=== PATIENT | female | born 1980 | race American Indian/Alaskan Native ===

== ENCOUNTER 2016-08-03 21:03 | Emergency (ER) | payer OTHER, MEDICAID ==
[2016-08-03 21:15] VITALS: BP 127/64
--- NOTE | 2016-08-03 22:18 | EDM.PDOC ---
ED HPI GENERAL MEDICAL PROBLEM - General Chief Complaint: General Stated Complaint: CHEST PAIN,BODY ACHES,FEVER,BACK PAIN Time Seen by Provider: 08/03/16 22:12 Source of Information: Reports: Patient History Limitations: Reports: No limitations - History of Present Illness INITIAL COMMENTS - FREE TEXT/NARRATIVE: This 36 yo female patient reports to the ED with generalized body aches and a fever that started this morning. The patient also reports difficulties dealing with her sisters . 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) Middle Back Pain Score (Numeric/FACES): 5 - Related Data Allergies Allergy/AdvReac Type Severity Reaction Status Date / Time fluoxetine [From Prozac] Allergy Rash Verified 08/03/16 21:12 Home Meds: Home Meds buPROPion [Wellbutrin] 150 mg PO DAILY 03/24/16 [History] Past Medical History - Past Health History Medical/Surgical History: Denies Medical/Surgical History Other HEENT History: wears glasses Cardiovascular History: Reports: None Respiratory History: Reports: None Gastrointestinal History: Reports: None Genitourinary History: Reports: None 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 Musculoskeletal History: Reports: None Neurological History: Reports: None Psychiatric History: Reports: Addiction, Anxiety, Depression Other Psychiatric History: opiods Endocrine/Metabolic History: Reports: None Hematologic History: Reports: None Immunologic History: Reports: None Oncologic (Cancer) History: Reports: None Dermatologic History: Reports: None Social & Family History - Tobacco Use Smoking Status *Q: Current Every Day Smoker Years of Tobacco use: 26 Packs/Tins Daily: 0.2 Used Tobacco, but Quit: No Second Hand Smoke Exposure: Yes - Caffeine Use Caffeine Use: Reports: Coffee, Soda - Alcohol Use Days Per Week of Alcohol Use: 0 - Recreational Drug Use Recreational Drug Use: No Drug Use in Last 12 Months: Yes Recreational Drug Type: Reports: Marijuana/Hashish Recreational Drug Use Frequency: Daily ED ROS GENERAL - Review of Systems Review Of Systems: ROS reveals no pertinent complaints other than HPI. ED EXAM, GENERAL - Physical Exam Exam: See Below Exam Limited By: No limitations General Appearance: alert, WD/WN, mild distress Eye Exam: bilateral eye: EOMI, normal inspection, PERRL Ears: normal external exam, normal canal, hearing grossly normal, normal TMs Nose: normal inspection, normal mucosa, no blood Throat/Mouth: Normal inspection, Normal lips, Normal teeth, Normal gums, Normal oropharynx, Normal voice, No airway compromise Head: atraumatic, normocephalic Neck: normal inspection, supple, non-tender, full range of motion Respiratory/Chest: no respiratory distress, lungs clear, normal breath sounds, no accessory muscle use, chest non-tender Cardiovascular: normal peripheral pulses, regular rate, rhythm, no edema, no gallop, no JVD, no murmur, no rub GI/Abdominal: normal bowel sounds, soft, non tender, no organomegaly, no distention, no abnormal bruit, no mass (Female) Exam: Deferred Rectal (Female) Exam: Deferred Back Exam: normal inspection, full range of motion, NT Extremities: normal inspection, normal range of motion, non-tender, normal capillary refill, no pedal edema Neurological: alert, oriented, CN II-XII intact, normal cognition, normal gait, normal reflexes, no motor/sensory deficits Psychiatric: normal affect, normal mood Skin Exam: Warm, Dry, Intact, Normal color, No rash Lymphatic: no adenopathy Course - Vital Signs Last Recorded V/S: Last Vital Signs Temp 36.4 C 08/03/16 21:13 Pulse 87 08/03/16 21:13 Resp 20 08/03/16 21:13 BP 127/64 08/03/16 21:13 Pulse Ox 99 08/03/16 21:13 - Orders/Labs/Meds Orders: Active Orders 24 hr Category Date Time Status CULTURE STREP A CONFIRMATION [] Stat Lab 08/03/16 21:19 Results STREP SCRN A RAPID W CULT CONF [] Stat Lab 08/03/16 21:19 Results Labs: Laboratory Tests 08/03/16 Range/Units 21:30 WBC 6.4 (5.0-10.0) 10^3/uL RBC 4.53 (4.2-5.4) 10^6/uL Hgb 12.1 (12.0-16.0) g/dL Hct 36.5 L (37.0-47.0) % MCV 80.6 (80-100) fL MCH 26.7 L (27.0-34.0) pg MCHC 33.2 (33.0-35.0) g/dL Plt Count 237 (150-450) 10^3/uL Neut % (Auto) 75.5 H (42.2-75.2) % Lymph % (Auto) 12.8 L (20.5-50.1) % [place] % (Auto) 9.0 H (2-8) % Eos % (Auto) 2.2 (1.0-3.0) % Baso % (Auto) 0.5 (0.0-1.0) % Departure - Departure Time of Disposition: 22:15 Disposition: Home, Self-Care 01 Condition: fair Clinical Impression: URI (upper respiratory infection) Qualifiers: URI type: unspecified viral URI Qualified Code(s): J06.9 - Acute upper respiratory infection, unspecified Instructions: Viral Respiratory Infection, [id number] Forms: ED Department Discharge Care Plan Goals: The patient was advised of the examination and lab results during the visit. The patient was encouraged to continue to take over the counter medications for temporary symptom relief. If the patient has any additional symptoms or concerns , the patient should follow-up with her primary care facility or return to the emergency department. - My Orders Last 24 Hours: My Active Orders 08/03/16 21:19 CULTURE STREP A CONFIRMATION [RM] Stat STREP SCRN A RAPID W CULT CONF [RM] Stat - Assessment/Plan Last 24 Hours: My Active Orders 08/03/16 21:19 CULTURE STREP A CONFIRMATION [RM] Stat STREP SCRN A RAPID W CULT CONF [RM] Stat
== END 2016-08-03 22:23 | disposition home or self-care (01) ==
LOC: DL.ED 21:03
DX: J06.9 Acute upper respiratory infection, unspecified (principal); F41.9 Anxiety disorder, unspecified; F32.9 Major depressive disorder, single episode, unspecified; F17.210 Nicotine dependence, cigarettes, uncomplicated; Z88.8 Allergy status to other drugs, medicaments and biological substances
CPT/HCPCS: 36415; 85025; 87081; 87430; 87804; 99283

== ENCOUNTER 2016-11-02 18:56 | Emergency (ER) | payer MEDICAID, OTHER ==
[2016-11-02 19:11] VITALS: BP 127/83
--- NOTE | 2016-11-02 20:54 | EDM.PDOC ---
ED HPI GENERAL MEDICAL PROBLEM - General Chief Complaint: Eye Problems Stated Complaint: RIGHT EYE Time Seen by Provider: 11/02/16 19:30 Source of Information: Reports: Patient History Limitations: Reports: No Limitations - History of Present Illness INITIAL COMMENTS - FREE TEXT/NARRATIVE: Brayan duffy with c/o of redness to right eye by kids, denies other injury has been in wind to day. Eyes feel dry. Onset: Today Quality: Reports: Burning Severity: Mild Right Eye Pain Score (Numeric/FACES): 3 - Related Data Allergies Allergy/AdvReac Type Severity Reaction Status Date / Time fluoxetine [From Prozac] Allergy Rash Verified 11/02/16 19:11 Home Meds: Home Meds buPROPion [Wellbutrin] 150 mg PO DAILY 03/24/16 [History] Buprenorphine HCl/Naloxone HCl [Suboxone 12 mg-3 mg Sl Film] 8.6 mg SL DAILY 08/16 [History] Past Medical History - Past Health History Medical/Surgical History: Denies Medical/Surgical History Other HEENT History: wears glasses Cardiovascular History: Reports: None Respiratory History: Reports: None Gastrointestinal History: Reports: None Genitourinary History: Reports: None 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 Musculoskeletal History: Reports: None Neurological History: Reports: None Psychiatric History: Reports: Addiction, Anxiety, Depression Other Psychiatric History: opiods Endocrine/Metabolic History: Reports: None Hematologic History: Reports: None Immunologic History: Reports: None Oncologic (Cancer) History: Reports: None Dermatologic History: Reports: None Social & Family History - Tobacco Use Smoking Status *Q: Never Smoker Years of Tobacco use: 26 Packs/Tins Daily: 0.2 Used Tobacco, but Quit: No Second Hand Smoke Exposure: No - Caffeine Use Caffeine Use: Reports: Coffee, Soda - Alcohol Use Days Per Week of Alcohol Use: 0 - Recreational Drug Use Recreational Drug Use: Yes Drug Use in Last 12 Months: No Recreational Drug Type: Reports: Marijuana/Hashish Recreational Drug Use Frequency: Daily ED ROS GENERAL - Review of Systems Review Of Systems: ROS reveals no pertinent complaints other than HPI. ED EXAM GENERAL W FULL EYE - Physical Exam Exam: See Below Exam Limited By: No Limitations General Appearance: Alert, Mild Distress Eye Exam: Bilateral Eye: Conjunctival Injection, PERRL Eyelids: Right: Lid Everted for Exam Cornea Exam: Right: Examined with Flourescein Nose: Normal Inspection Throat/Mouth: Normal Inspection Respiratory/Chest: No Respiratory Distress ED EYE w/ Add Procedure - Eye Procedure Alcaine Drops Administered: Yes Course - Vital Signs Last Recorded V/S: Last Vital Signs Temp 97.1 F 11/02/16 19:07 Pulse 83 11/02/16 19:07 Resp 18 11/02/16 19:07 BP 127/83 11/02/16 19:07 Pulse Ox 99 11/02/16 19:07 - Orders/Labs/Meds Meds: Medications Discontinued Medications Generic Name Dose Route Start Last Admin Trade Name Jailene PRN Reason Stop Dose Admin Fluorescein Sodium 1 mg 11/02/16 21:02 11/02/16 21:12 Ful-Elaine EYELF 11/02/16 21:03 1 mg ONETIME ONE Administration Tetracaine HCl 1 ml 11/02/16 21:02 11/02/16 21:12 Tetracaine 0.5% Steri-Unit Carolin EYELF 11/02/16 21:03 1 ml ASDIRECTED ONE Administration - Re-Assessments/Exams Free Text/Narrative Re-Assessment/Exam: 11/14/16 06:34 fluosceine staining of eye demonstrates no corneal injury. Treatment plan discussed. Patient is agreeable Departure - Departure Time of Disposition: 21:15 Disposition: Home, Self-Care 01 Condition: Good Clinical Impression: Irritation of right eye - Discharge Information Instructions: Eye Foreign Body, [id number] Referrals: Marielle Boswell MD [Primary Care Provider] - Forms: ED Department Discharge Additional Instructions: moisturizing eye drops per label instructions follow up if symptoms worsen
[2016-11-02] MEDS ORDERED: Fluorescein 1 MG Ophth Strip EYELF ONE (21:02)
[2016-11-02] MEDS ORDERED: Tetracaine HCl/PF 0.5% 4 ML Bottle EYELF ONE (21:02)
== END 2016-11-02 21:20 | disposition home or self-care (01) ==
LOC: DL.ED 18:56
DX: H57.8 Other specified disorders of eye and adnexa (principal); Z88.8 Allergy status to other drugs, medicaments and biological substances; Z79.899 Other long term (current) drug therapy
CPT/HCPCS: 99283; A9270

== ENCOUNTER 2018-01-29 01:15 | Emergency (ER) | payer MEDICAID ==
[2018-01-29 01:30] VITALS: BP 126/75
--- NOTE | 2018-01-29 01:57 | EDM.PDOC ---
ED HPI GENERAL MEDICAL PROBLEM - General Chief Complaint: Abdominal Pain Stated Complaint: FATIGUE AND HEADACHE, CRAMPING [id number] Time Seen by Provider: 01/29/18 01:54 Source of Information: Reports: Patient History Limitations: Reports: No Limitations - History of Present Illness INITIAL COMMENTS - FREE TEXT/NARRATIVE: diarrhoea since Friday, saw clinic Friday, tonight sudden cramping with diarrhoea feeling better presently. did have dinner of burger & cheese Abdomen Pain Score (Numeric/FACES): 5 - Related Data Allergies Allergy/AdvReac Type Severity Reaction Status Date / Time fluoxetine [From Prozac] Allergy Rash Verified 11/02/16 19:11 Home Meds: Home Meds buPROPion [Wellbutrin] 150 mg PO DAILY 03/24/16 [History] Buprenorphine HCl/Naloxone HCl [Suboxone 12 mg-3 mg Sl Film] 8.6 mg SL DAILY 08/16 [History] Past Medical History - Past Health History Medical/Surgical History: Denies Medical/Surgical History HEENT History: Reports: Impaired Vision Other HEENT History: wears glasses Cardiovascular History: Reports: None Respiratory History: Reports: None Gastrointestinal History: Reports: None Genitourinary History: Reports: None 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 Musculoskeletal History: Reports: None Neurological History: Reports: None Psychiatric History: Reports: Addiction, Anxiety, Depression Other Psychiatric History: opiods Endocrine/Metabolic History: Reports: None Hematologic History: Reports: None Immunologic History: Reports: None Oncologic (Cancer) History: Reports: None Dermatologic History: Reports: None Social & Family History - Family History Family Medical History: Noncontributory - Tobacco Use Smoking Status *Q: Never Smoker - Caffeine Use Caffeine Use: Reports: Coffee - Recreational Drug Use Recreational Drug Use: No ED ROS GENERAL - Review of Systems Review Of Systems: ROS reveals no pertinent complaints other than HPI. ED EXAM, GI/ABD - Physical Exam Exam: See Below Exam Limited By: No Limitations General Appearance: Alert, WD/WN, Mild Distress, Other (discomfort) Ears: Hearing Grossly Normal Throat/Mouth: Normal Voice, No Airway Compromise Head: Atraumatic Neck: Non-Tender, Full Range of Motion Respiratory/Chest: No Respiratory Distress Cardiovascular: Regular Rate, Rhythm GI/Abdominal Exam: Soft, Tender, Other (periumb discomfort). No: Distended, Guarding, Rigid, Rebound Neurological: Alert, Oriented, Normal Cognition, Normal Gait, No Motor/Sensory Deficits Psychiatric: Normal Affect, Normal Mood Skin Exam: Warm, Dry, Normal Color Lymphatic: No Adenopathy Course - Vital Signs Last Recorded V/S: Last Vital Signs Temp 36.1 C 01/29/18 01:20 Pulse 64 01/29/18 01:20 Resp 22 H 01/29/18 01:20 BP 126/75 01/29/18 01:20 Pulse Ox 100 01/29/18 01:20 - Orders/Labs/Meds Orders: Active Orders 24 hr Category Date Time Status Sodium Chloride 0.9% [Normal Saline] 1,000 ml Med 01/29/18 02:00 Active IV ASDIRECTED Medication Orders Sodium Chloride (Normal Saline) 1,000 mls @ 500 mls/hr IV ASDIRECTED HARRIET Last Admin: 01/29/18 02:03 Dose: 500 mls/hr Labs: Laboratory Tests 01/29/18 01/29/18 Range/Units 01:59 01:59 WBC 9.3 (5.0-10.0) 10^3/uL RBC 4.43 (4.2-5.4) 10^6/uL Hgb 11.7 L (12.0-16.0) g/dL Hct 36.1 L (37.0-47.0) % MCV 81.5 (80-100) fL MCH 26.4 L (27.0-34.0) pg MCHC 32.4 L (33.0-35.0) g/dL Plt Count 299 (150-450) 10^3/uL Neut % (Auto) 54.2 (42.2-75.2) % Lymph % (Auto) 34.5 (20.5-50.1) % [place] % (Auto) 7.7 (2-8) % Eos % (Auto) 3.1 H (1.0-3.0) % Baso % (Auto) 0.5 (0.0-1.0) % Sodium 136 (135-145) mmol/L Potassium 3.4 L (3.6-5.0) mmol/L Chloride 106 (101-111) mmol/L Carbon Dioxide 24.0 (21.0-31.0) mmol/L Anion Gap 9.4 BUN 13 (7-18) mg/dL Creatinine 0.7 (0.6-1.3) mg/dL Est Cr Clr Drug Dosing 77.50 mL/min Estimated GFR (MDRD) > 60 BUN/Creatinine Ratio 18.57 Glucose 112 H (74-105) mg/dL Calcium 8.5 (8.4-10.2) mg/dl Total Bilirubin 0.2 (0.2-1.0) mg/dL AST 21 (10-42) IU/L ALT 16 (10-60) IU/L Alkaline Phosphatase 82 (42-121) IU/L Total Protein 6.8 (6.7-8.2) g/dl Albumin 3.6 (3.2-5.5) g/dl Globulin 3.2 Albumin/Globulin Ratio 1.13 Amylase 45 (28-100) U/L Lipase 23 (22-51) U/L Meds: Medications Generic Name Dose Route Start Last Admin Trade Name Freq PRN Reason Stop Dose Admin Sodium Chloride 1,000 mls @ 500 mls/hr 01/29/18 02:00 01/29/18 02:03 Normal Saline IV 500 mls/hr ASDIRECTED HARRIET Administration Discontinued Medications Generic Name Dose Route Start Last Admin Trade Name Freq PRN Reason Stop Dose Admin Loperamide HCl 2 mg 01/29/18 02:39 01/29/18 02:47 Imodium PO 01/29/18 02:40 2 mg ONETIME ONE Administration - Re-Assessments/Exams Free Text/Narrative Re-Assessment/Exam: 01/29/18 02:40 results discussed with pt. Departure - Departure Time of Disposition: 02:54 Disposition: Home, Self-Care 01 Condition: Good Clinical Impression: Gastroenteritis - Discharge Information Instructions: Viral Gastroenteritis, Adult, [id number] Forms: ED Department Discharge Additional Instructions: 1) avoid solid foods next 48 hours 2) follow up at clinic rx given; imodium qid prn bentyl 10mg bid prn x 12 - My Orders Last 24 Hours: My Active Orders 01/29/18 02:00 Sodium Chloride 0.9% [Normal Saline] 1,000 ml IV ASDIRECTED - Assessment/Plan Last 24 Hours: My Active Orders 01/29/18 02:00 Sodium Chloride 0.9% [Normal Saline] 1,000 ml IV ASDIRECTED
[2018-01-29] MEDS ORDERED: Sodium Chloride 0.9% 1,000 ML IV SCH (02:00)
[2018-01-29 02:25] LABS: ANION GAP 9.4; CHLORIDE,CL 106 mmol/L (101-111); SODIUM,NA 136 mmol/L (135-145)
[2018-01-29] MEDS ORDERED: Loperamide 2 MG Cap PO ONE (02:39)
== END 2018-01-29 02:48 | disposition home or self-care (01) ==
LOC: DL.ED 01:15
DX: K52.9 Noninfective gastroenteritis and colitis, unspecified (principal); Z79.899 Other long term (current) drug therapy; Z88.8 Allergy status to other drugs, medicaments and biological substances
CPT/HCPCS: 36415; 80053; 82150; 83690; 85025; 96365; 99284; A9270; J7030

== ENCOUNTER 2019-03-27 19:52 | Emergency (ER) | payer MEDICAID ==
[2019-03-27] MEDS ORDERED: Ondansetron 4 MG/2 ML SDV IV ONE (20:16)
[2019-03-27] MEDS ORDERED: Ketorolac 30 MG/ML SDV IVPUSH ONE (20:16)
[2019-03-27] MEDS ORDERED: methylPREDNISolone Sodium Succinate 125 MG/2 ML SDV IVPUSH ONE (20:16)
[2019-03-27] MEDS ORDERED: Azithromycin 250 MG Tab PO ONE (20:17)
[2019-03-27 20:19] VITALS: BP 148/76; PULSE 81
--- NOTE | 2019-03-27 20:23 | EDM.PDOC ---
ED HPI GENERAL MEDICAL PROBLEM - General Chief Complaint: Headache Stated Complaint: HEAD PAIN Time Seen by Provider: 03/27/19 20:17 Source of Information: Reports: Patient History Limitations: Reports: No Limitations - History of Present Illness INITIAL COMMENTS - FREE TEXT/NARRATIVE: BUTCHER since Friday, feel like whole head is congested and today been having on-off dizzy feeling and little nauseous but drove herself here. denies head injury, no sore throat. also having hard tie trying to sleep. - Related Data Allergies Allergy/AdvReac Type Severity Reaction Status Date / Time fluoxetine [From Prozac] Allergy Rash Verified 11/02/16 19:11 Home Meds: Home Meds buPROPion [Wellbutrin] 150 mg PO DAILY 03/24/16 [History] Buprenorphine HCl/Naloxone HCl [Suboxone 12 mg-3 mg Sl Film] 8.6 mg SL DAILY 08/16 [History] Past Medical History - Past Health History Medical/Surgical History: Denies Medical/Surgical History HEENT History: Reports: Impaired Vision Other HEENT History: wears glasses Cardiovascular History: Reports: None Respiratory History: Reports: None Gastrointestinal History: Reports: None Genitourinary History: Reports: None 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 - Physical Exam Exam: See Below Exam Limited By: No Limitations General Appearance: Alert, WD/WN, Anxious, Mild Distress Eye Exam: Bilateral Eye: PERRL (pupils ER @ 4mm) Ears: Normal External Exam, Normal Canal, Hearing Grossly Normal, Other (TMs dull bilateral) Throat/Mouth: Normal Voice, No Airway Compromise Head Exam: Atraumatic Neck: Non-Tender, Full Range of Motion Respiratory/Chest: No Respiratory Distress Cardiovascular: Regular Rate, Rhythm GI/Abdominal: Soft, Non-Tender Neuro Exam (Abbreviated): Alert, Oriented, Normal Cognition, Normal Gait, No Motor/Sensory Deficits Psychiatric: Anxious Skin Exam: Warm, Dry, Normal Color Course - Orders/Labs/Meds Orders: Active Orders 24 hr Category Date Time Status Azithromycin [Zithromax] Med 03/27/19 20:17 Once 500 mg PO ONETIME ONE Meds: Medications Discontinued Medications Generic Name Dose Route Start Last Admin Trade Name Jailene PRN Reason Stop Dose Admin Ketorolac Tromethamine 30 mg 03/27/19 20:16 Toradol IVPUSH 03/27/19 20:17 ONETIME ONE Methylprednisolone Sodium Succinate 125 mg 03/27/19 20:16 Solu-Medrol IVPUSH 03/27/19 20:17 ONETIME ONE Ondansetron HCl 4 mg 03/27/19 20:16 Zofran IV 03/27/19 20:17 ONETIME ONE Departure - Departure Time of Disposition: 20:22 Disposition: Home, Self-Care 01 Condition: Good Clinical Impression: Sinus headache - Discharge Information Instructions: Sinus Headache, [id number] Additional Instructions: 1) sleep as much as possible and avoid cold winds 2) take tylenol or motrin for headache 3) follow up at clinic rx given; carson medrol dospak - My Orders Last 24 Hours: My Active Orders 03/27/19 20:17 Azithromycin [Zithromax] 500 mg PO ONETIME ONE - Assessment/Plan Last 24 Hours: My Active Orders 03/27/19 20:17 Azithromycin [Zithromax] 500 mg PO ONETIME ONE
== END 2019-03-27 20:45 | disposition home or self-care (01) ==
LOC: DL.ED 19:52
DX: R51 Headache (principal); F41.9 Anxiety disorder, unspecified; F32.9 Major depressive disorder, single episode, unspecified; Z88.8 Allergy status to other drugs, medicaments and biological substances; Z79.899 Other long term (current) drug therapy
CPT/HCPCS: 96374; 96375; 99283; A9270; J1885; J2405; J2930

== ENCOUNTER 2019-03-28 05:05 | Emergency (ER) | payer MEDICAID ==
--- NOTE | 2019-03-28 05:21 | EDM.PDOC ---
ED HPI GENERAL MEDICAL PROBLEM - General Stated Complaint: HEAD PAIN ARMS AND LEGS NUMB Time Seen by Provider: 03/28/19 05:17 Source of Information: Reports: Patient, Family History Limitations: Reports: No Limitations - History of Present Illness INITIAL COMMENTS - FREE TEXT/NARRATIVE: pt states was here about 9pm got IV Rx for sinus headaches then felt worse afterwards with numbness in hand but able to sisal picker her kids and went home to sleep few hours only instead of all night like what I told her. then she woke up and unable to talk and numbness in arms got worse. spouse states she acted like having a stroke. Headache Pain Score (Numeric/FACES): 7 - Related Data Allergies Allergy/AdvReac Type Severity Reaction Status Date / Time fluoxetine [From Prozac] Allergy Rash Verified 03/28/19 05:19 Home Meds: Home Meds buPROPion [Wellbutrin] 150 mg PO DAILY 03/24/16 [History] Buprenorphine HCl/Naloxone HCl [Suboxone 12 mg-3 mg Sl Film] 8.6 mg SL DAILY 08/16 [History] Past Medical History - Past Health History Medical/Surgical History: Denies Medical/Surgical History HEENT History: Reports: Impaired Vision Other HEENT History: wears glasses Cardiovascular History: Reports: None Respiratory History: Reports: None Gastrointestinal History: Reports: None Genitourinary History: Reports: None 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 - Physical Exam Exam: See Below Exam Limited By: No Limitations General Appearance: Alert, WD/WN, No Apparent Distress, Anxious Eye Exam: Bilateral Eye: PERRL (pupils ER @ 4mm) Ears: Hearing Grossly Normal Throat/Mouth: Normal Voice, No Airway Compromise Head Exam: Atraumatic Neck: Non-Tender, Full Range of Motion Respiratory/Chest: No Respiratory Distress, Lungs Clear, Normal Breath Sounds Cardiovascular: Regular Rate, Rhythm GI/Abdominal: Soft, Non-Tender Neuro Exam (Abbreviated): Alert, Oriented, Normal Cognition, Normal Gait, No Motor/Sensory Deficits. No: Abnormal Gait, Abnormal Reflexes Extremities: Normal Range of Motion, Other (equal strength bilateral) Psychiatric: Anxious Skin Exam: Warm, Dry, Normal Color Course - Vital Signs Last Recorded V/S: Last Vital Signs Temp 36.3 C 03/28/19 05:19 Pulse 73 03/28/19 05:19 Resp 16 03/28/19 05:19 BP 137/73 03/28/19 05:19 Pulse Ox 96 03/28/19 05:19 - Orders/Labs/Meds Orders: Active Orders 24 hr Category Date Time Status EKG 12 Lead [EKG Documentation Completion] [RC] STAT Care 03/28/19 05:35 Active Head wo Cont [CT] Urgent Exams 03/28/19 05:12 Taken DRUG SCREEN URINE BIORAD [URCHEM] Stat Lab 03/28/19 05:17 Stop Req UA RFX AMEENA AND CULT IF INDIC [URIN] Stat Lab 03/28/19 05:17 Stop Req Acetaminophen [Tylenol Extra Strength] Med 03/28/19 06:12 Once 500 mg PO ONETIME ONE Medication Orders Acetaminophen (Tylenol Extra Strength) 500 mg PO ONETIME ONE Stop: 03/28/19 06:13 Labs: Laboratory Tests 03/28/19 03/28/19 03/28/19 Range/Units 05:14 05:16 05:16 WBC 6.5 (5.0-10.0) 10^3/uL RBC 5.12 (4.2-5.4) 10^6/uL Hgb 13.7 D (12.0-16.0) g/dL Hct 41.4 (37.0-47.0) % MCV 80.9 (80-100) fL MCH 26.8 L (27.0-34.0) pg MCHC 33.1 (33.0-35.0) g/dL Plt Count 314 (150-450) 10^3/uL Neut % (Auto) 86.3 H (42.2-75.2) % Lymph % (Auto) 12.7 L (20.5-50.1) % [place] % (Auto) 0.5 L (2-8) % Eos % (Auto) 0.0 L (1.0-3.0) % Baso % (Auto) 0.5 (0.0-1.0) % PT 17.5 H (9.0-12.0) SEC INR 1.8 H (0.9-1.2) APTT 68.3 H (22.0-34.0) SEC Sodium (135-145) mmol/L Potassium (3.6-5.0) mmol/L Chloride (101-111) mmol/L Carbon Dioxide (21.0-31.0) mmol/L Anion Gap BUN (7-18) mg/dL Creatinine (0.6-1.3) mg/dL Est Cr Clr Drug Dosing mL/min Estimated GFR (MDRD) BUN/Creatinine Ratio Glucose (74-105) mg/dL POC Glucose 272 H (70-105) mg/dl Calcium (8.4-10.2) mg/dl Total Bilirubin (0.2-1.0) mg/dL AST (10-42) IU/L ALT (10-60) IU/L Alkaline Phosphatase (42-121) IU/L Total Protein (6.7-8.2) g/dl Albumin (3.2-5.5) g/dl Globulin Albumin/Globulin Ratio 03/28/ Range/Units 05:16 WBC (5.0-10.0) 10^3/uL RBC (4.2-5.4) 10^6/uL Hgb (12.0-16.0) g/dL Hct (37.0-47.0) % MCV (80-100) fL MCH (27.0-34.0) pg MCHC (33.0-35.0) g/dL Plt Count (150-450) 10^3/uL Neut % (Auto) (42.2-75.2) % Lymph % (Auto) (20.5-50.1) % [place] % (Auto) (2-8) % Eos % (Auto) (1.0-3.0) % Baso % (Auto) (0.0-1.0) % PT (9.0-12.0) SEC INR (0.9-1.2) APTT (22.0-34.0) SEC Sodium 134 L (135-145) mmol/L Potassium 3.5 L (3.6-5.0) mmol/L Chloride 103 (101-111) mmol/L Carbon Dioxide 19.0 L (21.0-31.0) mmol/L Anion Gap 15.5 BUN 12 (7-18) mg/dL Creatinine 0.8 (0.6-1.3) mg/dL Est Cr Clr Drug Dosing 66.47 mL/min Estimated GFR (MDRD) > 60 BUN/Creatinine Ratio 15.00 Glucose 293 H (74-105) mg/dL POC Glucose (70-105) mg/dl Calcium 8.9 (8.4-10.2) mg/dl Total Bilirubin 0.4 (0.2-1.0) mg/dL AST 28 (10-42) IU/L ALT 16 (10-60) IU/L Alkaline Phosphatase 93 (42-121) IU/L Total Protein 7.8 (6.7-8.2) g/dl Albumin 4.1 (3.2-5.5) g/dl Globulin 3.7 Albumin/Globulin Ratio 1.11 Meds: Medications Generic Name Dose Route Start Last Admin Trade Name Freq PRN Reason Stop Dose Admin Acetaminophen 500 mg 03/28/19 06:12 Tylenol Extra Strength PO 03/28/19 06:13 ONETIME ONE - Re-Assessments/Exams Free Text/Narrative Re-Assessment/Exam: 03/28/19 06:13 results discussed with pt who is feeling better right now. has been under lot of stress and not getting any support. will go back to counselling Friday since she doesn't want to have migraine all the time. Departure - Departure Time of Disposition: 06:15 Disposition: Home, Self-Care 01 Condition: Good Clinical Impression: Panic attack, Anxiety hyperventilation - Discharge Information Instructions: Panic Attack, [id number] Forms: ED Department Discharge Additional Instructions: 1) see counselor Friday 2) recheck if there is any change or concern - My Orders Last 24 Hours: My Active Orders 03/28/19 05:12 Head wo Cont [CT] Urgent 03/28/19 05:17 DRUG SCREEN URINE BIORAD [URCHEM] Stat UA RFX AMEENA AND CULT IF INDIC [URIN] Stat 03/28/19 05:35 EKG 12 Lead [EKG Documentation Completion] [RC] STAT 03/28/19 06:12 Acetaminophen [Tylenol Extra Strength] 500 mg PO ONETIME ONE - Assessment/Plan Last 24 Hours: My Active Orders 03/28/19 05:12 Head wo Cont [CT] Urgent 03/28/19 05:17 DRUG SCREEN URINE BIORAD [URCHEM] Stat UA RFX AMEENA AND CULT IF INDIC [URIN] Stat 03/28/19 05:35 EKG 12 Lead [EKG Documentation Completion] [RC] STAT 03/28/19 06:12 Acetaminophen [Tylenol Extra Strength] 500 mg PO ONETIME ONE
[2019-03-28 05:38] VITALS: BP 137/73; PULSE 73
[2019-03-28 05:56] LABS: ANION GAP 15.5; CHLORIDE,CL 103 mmol/L (101-111); SODIUM,NA 134 mmol/L (135-145)
[2019-03-28] MEDS ORDERED: Acetaminophen 500 MG Tab PO ONE (06:12)
== END 2019-03-28 06:23 | disposition home or self-care (01) ==
LOC: DL.ED 05:05
DX: F41.0 Panic disorder [episodic paroxysmal anxiety] (principal); F32.9 Major depressive disorder, single episode, unspecified; Z88.8 Allergy status to other drugs, medicaments and biological substances
CPT/HCPCS: 36415; 70450; 80053; 82962; 85025; 85610; 85730; 93005; 99284-25

== ENCOUNTER 2019-06-25 21:01 | Emergency (ER) | payer MEDICAID ==
[2019-06-25 21:13] VITALS: BP 129/65; PULSE 95
--- NOTE | 2019-06-25 21:26 | EDM.PDOC ---
ED HPI GENERAL MEDICAL PROBLEM - General Chief Complaint: Genitourinary Problem Stated Complaint: POSSIBLE UTI Time Seen by Provider: 06/25/19 21:25 Source of Information: Reports: Patient History Limitations: Reports: No Limitations - History of Present Illness INITIAL COMMENTS - FREE TEXT/NARRATIVE: onset low abd pain earlier today while driving to [employer]. not better and been having few days h/o urgency. Lower Groin Pain Score (Numeric/FACES): 7 Lower Abdomen Pain Score (Numeric/FACES): 5 - Related Data Allergies Allergy/AdvReac Type Severity Reaction Status Date / Time fluoxetine [From Prozac] Allergy Rash Verified 06/25/19 21:15 Home Meds: Home Meds buPROPion [Wellbutrin] 150 mg PO DAILY 03/24/16 [History] Buprenorphine HCl/Naloxone HCl [Suboxone 12 mg-3 mg Sl Film] 8.6 mg SL DAILY 08/16 [History] Past Medical History - Past Health History Medical/Surgical History: Denies Medical/Surgical History HEENT History: Reports: Impaired Vision Other HEENT History: wears glasses Cardiovascular History: Reports: None Respiratory History: Reports: None Gastrointestinal History: Reports: None Genitourinary History: Reports: None 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 Musculoskeletal History: Reports: None Neurological History: Reports: None Psychiatric History: Reports: Addiction, Anxiety, Depression Other Psychiatric History: opiods Endocrine/Metabolic History: Reports: None Hematologic History: Reports: None Immunologic History: Reports: None Oncologic (Cancer) History: Reports: None Dermatologic History: Reports: None Social & Family History - Family History Family Medical History: Noncontributory - Tobacco Use Smoking Status *Q: Unknown Ever Smoked Second Hand Smoke Exposure: No - Caffeine Use Caffeine Use: Reports: Coffee - Recreational Drug Use Recreational Drug Use: Yes Drug Use in Last 12 Months: No ED ROS GENERAL - Review of Systems Review Of Systems: Comprehensive ROS is negative, except as noted in HPI. ED EXAM, GI/ABD - Physical Exam Exam: See Below Exam Limited By: No Limitations General Appearance: Alert, WD/WN, No Apparent Distress. No: Active Emesis Ears: Hearing Grossly Normal Throat/Mouth: Normal Voice, No Airway Compromise Head: Atraumatic Neck: Non-Tender, Full Range of Motion Respiratory/Chest: No Respiratory Distress Cardiovascular: Regular Rate, Rhythm GI/Abdominal Exam: Soft, Non-Tender Neurological: Alert, Oriented, Normal Cognition, Normal Gait, No Motor/Sensory Deficits Psychiatric: Normal Affect, Normal Mood Skin Exam: Warm, Dry, Normal Color Lymphatic: No Adenopathy Course - Vital Signs Last Recorded V/S: Last Vital Signs Temp 35.6 C 06/25/19 21:09 Pulse 95 06/25/19 21:09 Resp 18 06/25/19 21:09 BP 129/65 06/25/19 21:09 Pulse Ox 100 06/25/19 21:09 - Orders/Labs/Meds Orders: Active Orders 24 hr Category Date Time Status CULTURE URINE [RM] Routine Lab 06/25/19 21:16 Received Labs: Laboratory Tests 06/25/19 06/25/19 06/25/19 Range/Units 21:16 21:16 21:45 WBC 9.2 (5.0-10.0) 10^3/uL RBC 4.40 (4.2-5.4) 10^6/uL Hgb 11.9 L D (12.0-16.0) g/dL Hct 36.2 L (37.0-47.0) % MCV 82.3 (80-100) fL MCH 27.0 (27.0-34.0) pg MCHC 32.9 L (33.0-35.0) g/dL Plt Count 286 (150-450) 10^3/uL Neut % (Auto) 62.3 (42.2-75.2) % Lymph % (Auto) 28.5 (20.5-50.1) % [place] % (Auto) 6.3 (2-8) % Eos % (Auto) 2.4 (1.0-3.0) % Baso % (Auto) 0.5 (0.0-1.0) % Sodium (135-145) mmol/L Potassium (3.6-5.0) mmol/L Chloride (101-111) mmol/L Carbon Dioxide (21.0-31.0) mmol/L Anion Gap BUN (7-18) mg/dL Creatinine (0.6-1.3) mg/dL Est Cr Clr Drug Dosing mL/min Estimated GFR (MDRD) BUN/Creatinine Ratio Glucose (74-105) mg/dL Calcium (8.4-10.2) mg/dl Total Bilirubin (0.2-1.0) mg/dL AST (10-42) IU/L ALT (10-60) IU/L Alkaline Phosphatase (42-121) IU/L Total Protein (6.7-8.2) g/dl Albumin (3.2-5.5) g/dl Globulin Albumin/Globulin Ratio Urine Color Yellow (YELLOW) Urine Appearance Slightly cloudy (CLEAR) Urine pH 5.5 (5.0-9.0) Ur Specific [place] >= 1.030 (1.005-1.030) Urine Protein Negative (NEGATIVE) Urine Glucose (UA) Negative (NEGATIVE) Urine Ketones Negative (NEGATIVE) Urine Occult Blood Negative (NEGATIVE) Urine Nitrite Negative (NEGATIVE) Urine Bilirubin Negative (NEGATIVE) Urine Urobilinogen 0.2 (0.2-1.0) mg/dL Ur Leukocyte Esterase Trace H (NEGATIVE) Urine RBC 0-5 /HPF Urine WBC 40-50 H (0-5/HPF) /HPF Ur Epithelial Cells Many H (NOT SEEN) /HPF Urine Bacteria Many H (0-FEW/HPF) /HPF Urine HCG, Qual Negative 06/25/19 Range/Units 21:45 WBC (5.0-10.0) 10^3/uL RBC (4.2-5.4) 10^6/uL Hgb (12.0-16.0) g/dL Hct (37.0-47.0) % MCV (80-100) fL MCH (27.0-34.0) pg MCHC (33.0-35.0) g/dL Plt Count (150-450) 10^3/uL Neut % (Auto) (42.2-75.2) % Lymph % (Auto) (20.5-50.1) % [place] % (Auto) (2-8) % Eos % (Auto) (1.0-3.0) % Baso % (Auto) (0.0-1.0) % Sodium 137 (135-145) mmol/L Potassium 3.6 (3.6-5.0) mmol/L Chloride 104 (101-111) mmol/L Carbon Dioxide 25.0 (21.0-31.0) mmol/L Anion Gap 11.6 BUN 12 (7-18) mg/dL Creatinine 0.7 (0.6-1.3) mg/dL Est Cr Clr Drug Dosing 75.97 mL/min Estimated GFR (MDRD) > 60 BUN/Creatinine Ratio 17.14 Glucose 94 (74-105) mg/dL Calcium 8.9 (8.4-10.2) mg/dl Total Bilirubin 0.6 (0.2-1.0) mg/dL AST 23 (10-42) IU/L ALT 27 (10-60) IU/L Alkaline Phosphatase 80 (42-121) IU/L Total Protein 7.3 (6.7-8.2) g/dl Albumin 3.9 (3.2-5.5) g/dl Globulin 3.4 Albumin/Globulin Ratio 1.15 Urine Color (YELLOW) Urine Appearance (CLEAR) Urine pH (5.0-9.0) Ur Specific [place] (1.005-1.030) Urine Protein (NEGATIVE) Urine Glucose (UA) (NEGATIVE) Urine Ketones (NEGATIVE) Urine Occult Blood (NEGATIVE) Urine Nitrite (NEGATIVE) Urine Bilirubin (NEGATIVE) Urine Urobilinogen (0.2-1.0) mg/dL Ur Leukocyte Esterase (NEGATIVE) Urine RBC /HPF Urine WBC (0-5/HPF) /HPF Ur Epithelial Cells (NOT SEEN) /HPF Urine Bacteria (0-FEW/HPF) /HPF Urine HCG, Qual Meds: Medications Discontinued Medications Generic Name Dose Route Start Last Admin Trade Name Freq PRN Reason Stop Dose Admin Phenazopyridine HCl 95 mg 06/25/19 22:51 Urinary Pain Relief PO 06/25/19 22:52 ONETIME ONE Trimethoprim/Sulfamethoxazole 1 tab 06/25/19 22:51 Septra Ds PO 06/25/19 22:52 ONETIME ONE - Re-Assessments/Exams Free Text/Narrative Re-Assessment/Exam: 06/25/19 22:52 results discussed with pt. Departure - Departure Time of Disposition: 22:52 Disposition: Home, Self-Care 01 Condition: Good Clinical Impression: UTI, Urinary tract infectious disease - Discharge Information Instructions: Urinary Tract Infection, Adult, [id number] Forms: ED Department Discharge Additional Instructions: 1) drink lots of liquids 2) follow up at clinic rx given; bactrim DS bid x 20 pyridium 100mg tid prn x 12 Sepsis Event Note - Evaluation Sepsis Screening Result: Possible Sepsis Risk - Focused Exam Vital Signs: Vital Signs Temp Pulse Resp BP Pulse Ox 06/25/19 21:09 35.6 C 95 18 129/65 100 Date Exam was Performed: 06/25/19 Time Exam was Performed: 22:52 - My Orders Last 24 Hours: My Active Orders 06/25/19 21:16 CULTURE URINE [] Routine - Assessment/Plan Last 24 Hours: My Active Orders 06/25/19 21:16 CULTURE URINE [] Routine
[2019-06-25 22:12] LABS: ANION GAP 11.6; CHLORIDE,CL 104 mmol/L (101-111); SODIUM,NA 137 mmol/L (135-145)
[2019-06-25] MEDS ORDERED: Sulfamethoxazole/Trimethoprim 800-160 MG Tab PO ONE (22:51)
[2019-06-25] MEDS ORDERED: Phenazopyridine 95 MG Tab PO ONE (22:51)
== END 2019-06-25 23:01 | disposition home or self-care (01) ==
LOC: DL.ED 21:01
DX: N39.0 Urinary tract infection, site not specified (principal); F32.9 Major depressive disorder, single episode, unspecified; Z88.8 Allergy status to other drugs, medicaments and biological substances; Z79.899 Other long term (current) drug therapy
CPT/HCPCS: 36415; 80053; 81001; 81025; 85025; 87086; 87088; 87186; 99284; A9270

== ENCOUNTER 2020-08-21 19:19 | Emergency (ER) | payer MEDICAID ==
[2020-08-21 19:51] VITALS: BP 122/74; PULSE 65
[2020-08-21] MEDS ORDERED: Fluorescein 1 MG Ophth Strip EYELF ONE (20:02)
[2020-08-21] MEDS ORDERED: Tetracaine HCl/PF 0.5% 4 ML Bottle EYELF ONE (20:02)
--- NOTE | 2020-08-21 20:18 | EDM.PDOC ---
ED HPI GENERAL MEDICAL PROBLEM - General Chief Complaint: Eye Problems Stated Complaint: LEFT EYE REDNESS AND HEADACHE Time Seen by Provider: 08/21/20 20:00 Source of Information: Reports: Patient, RN - History of Present Illness INITIAL COMMENTS - FREE TEXT/NARRATIVE: ED with c/o left eye pain since this afternoon, Reported cleaning and felt something in ey. Thought maybe piece of lint or fuzz, Worried may have scratched eye. Has had some watering after getting lint type object out. no blurring of vision. Left Eye Pain Score (Numeric/FACES): 2 - Related Data Allergies Allergy/AdvReac Type Severity Reaction Status Date / Time fluoxetine [From Prozac] Allergy Rash Verified 08/21/20 19:39 Home Meds: Home Meds buPROPion [Wellbutrin] 300 mg PO DAILY 03/24/16 [History] Buprenorphine HCl/Naloxone HCl [Suboxone 12 mg-3 mg Sl Film] 8.6 mg SL DAILY 11/02/16 [History] Past Medical History - Past Health History Medical/Surgical History: Denies Medical/Surgical History HEENT History: Reports: Impaired Vision Other HEENT History: wears glasses Cardiovascular History: Reports: None Respiratory History: Reports: None Gastrointestinal History: Reports: None Genitourinary History: Reports: None 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: Musculoskeletal History: Reports: None Neurological History: Reports: None Psychiatric History: Reports: Addiction, Anxiety, Depression Other Psychiatric History: opiods Endocrine/Metabolic History: Reports: None Hematologic History: Reports: None Immunologic History: Reports: None Oncologic (Cancer) History: Reports: None Dermatologic History: Reports: None - Infectious Disease History Infectious Disease History: Reports: Chicken Pox - Past Surgical History HEENT Surgical History: Reports: Oral Surgery Female Surgical History: Reports: Section, Tubal Ligation Social & Family History - Family History Family Medical History: No Pertinent Family History - Tobacco Use Tobacco Use Status *Q: Never Tobacco User Second Hand Smoke Exposure: No - Caffeine Use Caffeine Use: Reports: Coffee - Recreational Drug Use Recreational Drug Use: No ED ROS GENERAL - Review of Systems Review Of Systems: Comprehensive ROS is negative, except as noted in HPI. ED EXAM GENERAL W FULL EYE - Physical Exam Exam: See Below Exam Limited By: No Limitations General Appearance: Alert, No Apparent Distress Eye Exam: Left Eye: Conjunctival Injection (mild), Bilateral Eye: EOMI, PERRL Eyelids: Left: Lid Everted for Exam Conjunctiva & Sclera: Left: Injected (mild) Cornea Exam: Left: Normal Appearance, Examined with Flourescein Pupils: Normal Accommodation Ears: Hearing Grossly Normal Respiratory/Chest: Normal Breath Sounds Neurological: Alert, Oriented Psychiatric: Tearful Skin Exam: Warm, Dry, Intact, Normal Color Course - Vital Signs Last Recorded V/S: Last Vital Signs Temp 97.6 F 08/21/20 19:47 Pulse 65 08/21/20 19:47 Resp 18 08/21/20 19:47 BP 122/74 08/21/20 19:47 Pulse Ox 99 08/21/20 19:47 - Orders/Labs/Meds Meds: Medications Discontinued Medications Generic Name Dose Route Start Last Admin Trade Name Jailene PRN Reason Stop Dose Admin Fluorescein Sodium 1 mg 08/21/20 20:02 08/21/20 20:08 Fluorescein 1 Mg Ophth Strip EYELF 08/21/20 20:03 1 mg ONETIME ONE Administration Tetracaine HCl 1 ml 08/21/20 20:02 08/21/20 20:08 Tetracaine Hcl/Pf 0.5% 4 Ml Bottle EYELF 08/21/20 20:03 1 ml ASDIRECTED ONE Administration Departure - Departure Time of Disposition: 20:15 Disposition: Home, Self-Care 01 Condition: Good Clinical Impression: Discomfort of left eye - Discharge Information *PRESCRIPTION DRUG MONITORING PROGRAM REVIEWED*: No *COPY OF PRESCRIPTION DRUG MONITORING REPORT IN PATIENT RENEE: No Instructions: Eye Foreign Body, [id number] Forms: ED Department Discharge Additional Instructions: lubricating eye drops as needed to left eye follow up eye clinic if not improved or worsening in am avoid rubbing eye good hand washing after eye contact Sepsis Event Note (ED) - Evaluation Sepsis Screening Result: No Definite Risk - Focused Exam Vital Signs: Vital Signs Temp Pulse Resp BP Pulse Ox 08/21/20 19:47 97.6 F 65 18 122/74 99
== END 2020-08-21 20:30 | disposition home or self-care (01) ==
LOC: DL.ED 19:19
DX: H53.142 Visual discomfort, left eye (principal)
CPT/HCPCS: 99283

== ENCOUNTER 2021-05-26 15:37 | Emergency (ER) | payer MEDICAID ==
[2021-05-26 15:53] VITALS: BP 123/74; PULSE 74
[2021-05-26] MEDS ORDERED: Ondansetron 4 MG/2 ML SDV IV ONE (15:59)
[2021-05-26] MEDS ORDERED: Sodium Chloride 0.9% 1,000 ML IV ONE (15:59)
[2021-05-26] MEDS ORDERED: Atropine/Diphenoxylate 0.025-2.5 MG Tab PO ONE (15:59)
[2021-05-26] MEDS ORDERED: Sodium Chloride 0.9% 10 ML Syringe FLUSH PRN (15:59)
--- NOTE | 2021-05-26 16:02 | EDM.PDOC ---
ED HPI GENERAL MEDICAL PROBLEM - General Chief Complaint: Gastrointestinal Problem Stated Complaint: STOMACH ISSUES Time Seen by Provider: 05/26/21 15:59 Source of Information: Reports: Patient, Old Records, RN, RN Notes Reviewed History Limitations: Reports: No Limitations - History of Present Illness INITIAL COMMENTS - FREE TEXT/NARRATIVE: Pt presents to ED via POV with c/o diarrhea x 3 weeks. Pt states that she was on 2 antibiotic medications for pneumonia and strep throat for 10 days, and completed both antibiotics a few days before the diarrhea began. Pt denies N/V. States today she notice her stool was blood tinged and with mucus. Pt denies pain. Onset: Gradual Duration: Constant Location: Reports: Abdomen Quality: Reports: Other (Denies pain) Severity: Severe Improves with: Reports: None Worsens with: Reports: None Associated Symptoms: Reports: No Other Symptoms - Related Data Allergies Allergy/AdvReac Type Severity Reaction Status Date / Time fluoxetine [From Prozac] Allergy Rash Verified 05/26/21 15:46 Home Meds: Home Meds buPROPion [Wellbutrin] 300 mg PO DAILY 03/24/16 [History] Buprenorphine HCl/Naloxone HCl [Suboxone 12 mg-3 mg Sl Film] 8.6 mg SL DAILY 11/02/16 [History] Past Medical History - Past Health History Medical/Surgical History: Denies Medical/Surgical History HEENT History: Reports: Impaired Vision Other HEENT History: wears glasses Cardiovascular History: Reports: None Respiratory History: Reports: None Gastrointestinal History: Reports: None Genitourinary History: Reports: None 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: Musculoskeletal History: Reports: None Neurological History: Reports: None Psychiatric History: Reports: Addiction, Anxiety, Depression Other Psychiatric History: opiods Endocrine/Metabolic History: Reports: None Hematologic History: Reports: None Immunologic History: Reports: None Oncologic (Cancer) History: Reports: None Dermatologic History: Reports: None - Infectious Disease History Infectious Disease History: Reports: Chicken Pox - Past Surgical History HEENT Surgical History: Reports: Oral Surgery Female Surgical History: Reports: Section, Tubal Ligation Social & Family History - Family History Family Medical History: No Pertinent Family History - Tobacco Use Tobacco Use Status *Q: Never Tobacco User Second Hand Smoke Exposure: No - Caffeine Use Caffeine Use: Reports: Coffee, Soda - Recreational Drug Use Recreational Drug Use: No - Living Situation & Occupation Living situation: Reports: with Family ED ROS GENERAL - Review of Systems Review Of Systems: Comprehensive ROS is negative, except as noted in HPI. ED EXAM, GI/ABD - Physical Exam Exam: See Below Exam Limited By: No Limitations General Appearance: Alert, WD/WN, No Apparent Distress Eyes: Bilateral: Normal Appearance (No scleral icterus) Nose: Normal Inspection Throat/Mouth: Normal Lips, Normal Voice, No Airway Compromise, Other (Dry oral mucosa) Head: Atraumatic, Normocephalic Respiratory/Chest: No Respiratory Distress, Lungs Clear, Normal Breath Sounds, No Accessory Muscle Use, Chest Non-Tender Cardiovascular: Regular Rate, Rhythm, No Edema GI/Abdominal Exam: Soft, No Organomegaly, No Distention, No Abnormal Bruit, No Mass, Tender (Mild diffuse tenderness, no peritoneal signs), Other (Slightly hyperactive bowel sounds). No: Guarding, Rigid, Rebound Back Exam: Normal Inspection. No: CVA Tenderness (L), CVA Tenderness (R) Extremities: Normal Inspection, No Pedal Edema Neurological: Alert, Oriented, CN II-XII Intact, Normal Cognition, No Motor/Sensory Deficits Psychiatric: Normal Mood Skin Exam: Warm, Dry, Intact, Normal Color, No Rash Course - Vital Signs Last Recorded V/S: Last Vital Signs Temp 98.3 F 05/26/21 15:47 Pulse 74 05/26/21 15:47 Resp 20 05/26/21 15:47 BP 123/74 05/26/21 15:47 Pulse Ox 99 05/26/21 15:47 - Orders/Labs/Meds Orders: Active Orders 24 hr Category Date Time Status Peripheral IV Care [RC] . DIRECTED Care 05/26/21 15:59 Active CLOSTRIDIUM DIFFICILE TOX RFLX [MREF] Stat Lab 05/26/21 16:00 Received CULTURE STOOL [RM] Stat Lab 05/26/21 16:00 Received SHIGA TOXIN 1 & 2 [MREF] Stat Lab 05/26/21 16:00 Received Sodium Chloride 0.9% [Saline Flush] Med 05/26/21 15:59 Active 10 ml FLUSH ASDIRECTED PRN Isolation [COMM] Stat Oth 05/26/21 15:57 Active Peripheral IV Insertion Adult [OM.PC] Stat Oth 05/26/21 15:58 Ordered Medication Orders Sodium Chloride (Sodium Chloride 0.9% 10 Ml Syringe) 10 ml FLUSH ASDIRECTED PRN PRN Reason: Keep Vein Open Labs: Laboratory Tests 05/26/21 05/26/21 05/26/21 Range/Units 16:06 16:06 16:06 WBC 10.8 H (5.0-10.0) 10^3/uL RBC 4.42 (4.2-5.4) 10^6/uL Hgb 11.7 L (12.0-16.0) g/dL Hct 36.5 L (37.0-47.0) % MCV 82.6 (80-100) fL MCH 26.5 L (27.0-34.0) pg MCHC 32.1 L (33.0-35.0) g/dL Plt Count 298 (150-450) 10^3/uL Neut % (Auto) 76.4 H (42.2-75.2) % Lymph % (Auto) 15.0 L (20.5-50.1) % [place] % (Auto) 6.1 (2-8) % Eos % (Auto) 2.1 (1.0-3.0) % Baso % (Auto) 0.4 (0.0-1.0) % Sodium 142 (136-145) mmol/L Potassium 4.0 (3.5-5.1) mmol/L Chloride 104 (98-107) mmol/L Carbon Dioxide 26 (21-32) mmol/L Anion Gap 16.0 H (7-13) mEq/L BUN 10 (7-18) mg/dL Creatinine 0.94 (0.55-1.02) mg/dL Est Cr Clr Drug Dosing 55.43 mL/min Estimated GFR (MDRD) > 60 BUN/Creatinine Ratio 10.6 (No establ ref range) Glucose 103 H (70-99) mg/dL Lactic Acid 1.8 (0.4-2.0) mmol/L Calcium 7.9 L (8.5-10.1) mg/dL Magnesium (1.8-2.4) mg/dL Total Bilirubin 0.3 (0.2-1.0) mg/dL AST 14 L (15-37) U/L ALT 24 (14-59) U/L Alkaline Phosphatase 96 (46-116) U/L C-Reactive Protein < 0.2 (0.0-0.9) mg/dL Total Protein 6.5 (6.4-8.2) g/dL Albumin 3.3 L (3.4-5.0) g/dL Globulin 3.2 Albumin/Globulin Ratio 1.03 Amylase 53 (25-115) U/L Lipase 67 L (73-393) U/L // Range/Units 16:06 WBC (5.0-10.0) 10^3/uL RBC (4.2-5.4) 10^6/uL Hgb (12.0-16.0) g/dL Hct (37.0-47.0) % MCV (80-100) fL MCH (27.0-34.0) pg MCHC (33.0-35.0) g/dL Plt Count (150-450) 10^3/uL Neut % (Auto) (42.2-75.2) % Lymph % (Auto) (20.5-50.1) % [place] % (Auto) (2-8) % Eos % (Auto) (1.0-3.0) % Baso % (Auto) (0.0-1.0) % Sodium (136-145) mmol/L Potassium (3.5-5.1) mmol/L Chloride (98-107) mmol/L Carbon Dioxide (21-32) mmol/L Anion Gap (7-13) mEq/L BUN (7-18) mg/dL Creatinine (0.55-1.02) mg/dL Est Cr Clr Drug Dosing mL/min Estimated GFR (MDRD) BUN/Creatinine Ratio (No establ ref range) Glucose (70-99) mg/dL Lactic Acid (0.4-2.0) mmol/L Calcium (8.5-10.1) mg/dL Magnesium 2.1 (1.8-2.4) mg/dL Total Bilirubin (0.2-1.0) mg/dL AST (15-37) U/L ALT (14-59) U/L Alkaline Phosphatase (46-116) U/L C-Reactive Protein (0.0-0.9) mg/dL Total Protein (6.4-8.2) g/dL Albumin (3.4-5.0) g/dL Globulin Albumin/Globulin Ratio Amylase (25-115) U/L Lipase (73-393) U/L Meds: Medications Generic Name Dose Route Start Last Admin Trade Name Freq PRN Reason Stop Dose Admin Sodium Chloride 10 ml 05/26/21 15:59 Sodium Chloride 0.9% 10 Ml Syringe FLUSH ASDIRECTED PRN Keep Vein Open Discontinued Medications Generic Name Dose Route Start Last Admin Trade Name Freq PRN Reason Stop Dose Admin Diphenoxylate HCl/Atropine 2 tab 05/26/21 15:59 05/26/21 16:10 Atropine/Diphenoxylate 0.025-2.5 Mg Tab PO 05/26/21 16:00 2 tab ONETIME ONE Administration Sodium Chloride 1,000 mls @ 999 mls/hr 05/26/21 15:59 05/26/21 16:18 Normal Saline IV 05/26/21 16:59 999 mls/hr .BOLUS ONE Administration Ondansetron HCl 4 mg 05/26/21 15:59 05/26/21 16:18 Ondansetron 4 Mg/2 Ml Sdv IV 05/26/21 16:00 4 mg ONETIME ONE Administration Vancomycin HCl 250 mg 05/26/21 17:41 Vancomycin 125 Mg Cap PO 05/26/21 17:42 ONETIME ONE - Re-Assessments/Exams Free Text/Narrative Re-Assessment/Exam: 05/26/21 17:47 I think the pt likely has C-diff given the timing of onset following dual antibiotic therapy. Plan to d/c pt home on oral Vancomycin with instructions to call back in 3 days to find out the results of her stool study, and to f/u in clinic this week. Departure - Departure Time of Disposition: 17:49 Disposition: Home, Self-Care 01 Condition: Good Clinical Impression: Diarrhea of presumed infectious origin - Discharge Information *PRESCRIPTION DRUG MONITORING PROGRAM REVIEWED*: Not Applicable *COPY OF PRESCRIPTION DRUG MONITORING REPORT IN PATIENT RENEE: Not Applicable Instructions: Diarrhea, Adult, Food Choices to Help Relieve Diarrhea, Adult, Clostridioides Difficile Infection Forms: ED Department Discharge Additional Instructions: Rx: Vancomycin 125mg Rx: Lomotil Drink plenty of water or Gatorade. Follow up in clinic this week for recheck. Sepsis Event Note (ED) - Evaluation Sepsis Screening Result: No Definite Risk - Focused Exam Vital Signs: Vital Signs Temp Pulse Resp BP Pulse Ox 05/26/21 15:47 98.3 F 74 20 123/74 99 - My Orders Last 24 Hours: My Active Orders 05/26/21 15:57 Isolation [COMM] Stat 05/26/21 15:58 Peripheral IV Insertion Adult [OM.PC] Stat 05/26/21 15:59 Peripheral IV Care [RC] . DIRECTED Sodium Chloride 0.9% [Saline Flush] 10 ml FLUSH ASDIRECTED PRN 05/26/21 16:00 CLOSTRIDIUM DIFFICILE TOX RFLX [MREF] Stat CULTURE STOOL [RM] Stat SHIGA TOXIN 1 & 2 [MREF] Stat - Assessment/Plan Last 24 Hours: My Active Orders 05/26/21 15:57 Isolation [COMM] Stat 05/26/21 15:58 Peripheral IV Insertion Adult [OM.PC] Stat 05/26/21 15:59 Peripheral IV Care [RC] . DIRECTED Sodium Chloride 0.9% [Saline Flush] 10 ml FLUSH ASDIRECTED PRN 05/26/21 16:00 CLOSTRIDIUM DIFFICILE TOX RFLX [MREF] Stat CULTURE STOOL [RM] Stat SHIGA TOXIN 1 & 2 [MREF] Stat
[2021-05-26 16:34] LABS: CHLORIDE,CL 104 mmol/L (98-107); SODIUM,NA 142 mmol/L (136-145)
[2021-05-26] MEDS ORDERED: Vancomycin 125 MG Cap PO ONE (17:41)
== END 2021-05-26 17:59 | disposition home or self-care (01) ==
LOC: DL.ED 15:37
DX: R19.7 Diarrhea, unspecified (principal); Z88.8 Allergy status to other drugs, medicaments and biological substances; Z79.899 Other long term (current) drug therapy
CPT/HCPCS: 36415; 80053; 82150; 83605; 83690; 83735; 85025; 86140; 87045; 87046; 87493; 87899; 96374; 99284; A9270; J2405; J7030

== ENCOUNTER 2021-08-07 22:01 | Emergency (ER) | payer MEDICAID ==
[2021-08-07 22:46] VITALS: BP 141/98; PULSE 74
[2021-08-07 23:25] LABS: ANION GAP 13.4 mEq/L (7-13); CHLORIDE,CL 105 mmol/L (98-107); SODIUM,NA 140 mmol/L (136-145)
== END 2021-08-07 23:40 | disposition home or self-care (01) ==
LOC: DL.ED 22:01
DX: F41.9 Anxiety disorder, unspecified (principal); I10 Essential (primary) hypertension; Z88.8 Allergy status to other drugs, medicaments and biological substances
CPT/HCPCS: 36415; 80053; 84484; 85025; 93005; 99283-25

== ENCOUNTER 2021-10-04 05:33 | Day surgery (SDC) | payer MEDICAID ==
[~2021-10-04 05:33] MED LIST: Dextrose 5%-0.45% NaCl 1,000 ML IV SCH; Sodium Chloride 0.9% 10 ML Syringe FLUSH PRN; Sodium Chloride 0.9% 10 ML Syringe FLUSH SCH
[2021-10-04] MEDS ORDERED: Midazolam 1 MG/ML 2 ML SDV IV ONE ×8 (05:34→07:16)
[2021-10-04] MEDS ORDERED: fentaNYL 100 MCG/2 ML SDV IV ONE ×5 (05:34→07:25)
[2021-10-04] MEDS ORDERED: Dextrose 5%-0.45% NaCl 1,000 ML IV SCH (06:00)
[2021-10-04] MEDS ORDERED: Sodium Chloride 0.9% 10 ML Syringe FLUSH PRN (06:00)
[2021-10-04] MEDS ORDERED: fentaNYL 100 MCG/2 ML SDV ONE (06:22)
[2021-10-04] MEDS ORDERED: Midazolam 1 MG/ML 2 ML SDV ONE (06:22)
[2021-10-04 13:24] VITALS: BP 108/54; PULSE 78
== END 2021-10-04 09:36 | disposition home or self-care (01) ==
LOC: DL.ENDO 05:33
PROVIDERS: ATTEND Internal Medicine Gastroenterology
DX: K62.5 Hemorrhage of anus and rectum (principal); K64.8 Other hemorrhoids; E66.09 Other obesity due to excess calories; F11.20 Opioid dependence, uncomplicated; F41.1 Generalized anxiety disorder; Z86.19 Personal history of other infectious and parasitic diseases; Z01.812 Encounter for preprocedural laboratory examination; Z20.822 Contact with and (suspected) exposure to COVID-19; Z68.35 Body mass index [BMI] 35.0-35.9, adult
CPT/HCPCS: J2250; J3010; J7042; U0002

== ENCOUNTER 2021-12-19 16:00 | Emergency (ER) | payer MEDICAID | END 2021-12-19 16:42 | LOC: DL.ED 16:35 | DX: T18.9XXA Foreign body of alimentary tract, part unspecified, initial encounter (principal) | CPT/HCPCS: 74018; 99283 ==

== ENCOUNTER 2022-09-27 01:27 | Emergency (ER) | payer MEDICAID ==
[2022-09-27 01:50] VITALS: BP 133/91; PULSE 82
== END 2022-09-27 02:38 | disposition home or self-care (01) ==
LOC: DL.ED 01:27
DX: S01.311A Laceration without foreign body of right ear, initial encounter (principal); S40.012A Contusion of left shoulder, initial encounter; I10 Essential (primary) hypertension; Z98.890 Other specified postprocedural states; Z88.8 Allergy status to other drugs, medicaments and biological substances; Z79.899 Other long term (current) drug therapy; X99.0XXA Assault by sharp glass, initial encounter
CPT/HCPCS: 12011; 99283